=== PATIENT | male | born 1990 | race Caucasian/White ===

== ENCOUNTER 2024-10-05 17:41 | Emergency (ER) | payer SELFPAY ==
[~2024-10-05] VITALS: Ht 182.9 cm; Wt 93.5 kg
[2024-10-05] MEDS ORDERED: KETOROLAC TROMETHAMINE 60 MG/2 ML VIAL IM ONE (20:15)
[2024-10-05] MEDS ORDERED: TRAMADOL HCL50 MG PO (20:29)
[2024-10-05] MEDS ORDERED: TRAMADOL HCL 50 MG HOME.PACK PO ONE (20:30)
[2024-10-05 20:51] VITALS: BP 129/88
== END 2024-10-05 20:52 | disposition home or self-care (01) ==
LOC: ED 17:41
DX: S70.02XA Contusion of left hip, initial encounter (principal); W20.8XXA Other cause of strike by thrown, projected or falling object, initial encounter
CPT/HCPCS: 73502; 99283; A9270